=== PATIENT | male | born 1980 | race Caucasian/White ===

== ENCOUNTER 2018-04-23 10:26 | Emergency (ER) | payer BC, MEDICAID ==
[2018-04-23 10:48] VITALS: BP 141/94
--- NOTE | 2018-04-23 11:11 | EDM.PDOC ---
ED HPI GENERAL MEDICAL PROBLEM - General Chief Complaint: Upper Extremity Injury/Pain Stated Complaint: R THUMB LAC Time Seen by Provider: 04/23/18 10:56 Source of Information: Reports: Patient History Limitations: Reports: No Limitations - History of Present Illness INITIAL COMMENTS - FREE TEXT/NARRATIVE: 37-year-old male presents for evaluation and treatment the laceration to the right dorsal hand. Injury occurred prior to arrival in the ER. Patient is self- employed. He was at work. His cutting some tin for a roof when he accidentally cut himself. He has a 2 cm laceration to the right dorsal hand over the proximal phalnex. He denies any numbness or tingling. States it bled extensively after the injury but bleeding is controlled now. No obvious decreased range of motion. Some discomfort with flexion. Tetanus is up-to-date. Last tetanus was about 7 months ago. Patient is right handed. Onset: Today Location: Reports: Upper Extremity, Right Right Hand Pain Score (Numeric/FACES): 4 - Related Data Allergies Allergy/AdvReac Type Severity Reaction Status Date / Time No Known Allergies Allergy Verified 04/23/18 10:35 Home Meds: Home Meds Albuterol Sulfate [Proair Hfa] 1 puff INH ASDIRECTED PRN 04/23/18 [History] Past Medical History Respiratory History: Reports: Asthma Review of Systems - Review of Systems Review Of Systems: See Below Musculoskeletal: Reports: Hand Pain (from wound), Other (no decreased ROM) Skin: Reports: Wound (right dorsal hand) Neurological: Denies: Numbness, Tingling ED EXAM, GENERAL - Physical Exam Exam: See Below Exam Limited By: No Limitations General Appearance: Alert, WD/WN, No Apparent Distress Respiratory/Chest: No Respiratory Distress Peripheral Pulses: 2+: Radial (R) Extremities: Normal Range of Motion (patient is able to flex and extend right thumb with and without resistance. Able to adduct and abudct thumb with and withot resistance. Able to oppose thumb to all fingers. Able to make a fist. ), Normal Capillary Refill Neurological: Alert, Oriented, Normal Cognition Psychiatric: Normal Affect, Normal Mood Skin Exam: Warm, Dry, Wound/Incision (2cm laceration to the dorsal right hand over the distal metacarpal) ED TRAUMA EXTREMITY PROCEDURES - Laceration/Wound Repair Right Dorsal Digit - 1st (Thumb) Lac/Wound Length In cm: 2 Appearance: Subcutaneous, Clean Distal NVT: Neuro & Vascular Intact, No Tendon Injury Anesthetic Type: Local Local Anesthesia - Lidocaine (Xylocaine): 1% Plain Local Anesthetic Volume: 3cc Skin Prep: Chlorhexidine (Hibiciens), Saline, Sterile Drape Exploration/Debridement/Repair: Wound Explored, No Foreign Material Found Closed With: Sutures Suture Size: 4-0 # of Sutures: 6 Suture Type: Nylon, Interrupted, Simple Sterile Dressing Applied: Nurse Tetanus Status Addressed: Yes Complications: No Course - Vital Signs Last Recorded V/S: Last Vital Signs Temp 97.6 F 04/23/18 10:36 Pulse 95 04/23/18 10:36 Resp 18 04/23/18 10:36 BP 141/94 H 04/23/18 10:36 Pulse Ox 95 04/23/18 10:36 - Orders/Labs/Meds Meds: Medications Discontinued Medications Generic Name Dose Route Start Last Admin Trade Name Freq PRN Reason Stop Dose Admin Lidocaine HCl 50 ml 04/23/18 11:36 04/23/18 11:41 Xylocaine 1% INJECT 04/23/18 11:37 50 ml ONETIME ONE Administration - Re-Assessments/Exams Free Text/Narrative Re-Assessment/Exam: 04/23/18 12:01 6 sutures placed to the right dorsal hand over the proximal phalanx. Patient tolerated well. Range of motion tested again after sutures placed and patient is able to flex and extend right thumb both with and without resistance. Discharge instructions as documented. Departure - Departure Time of Disposition: 12:02 Disposition: Home, Self-Care 01 Condition: Fair Clinical Impression: Laceration - Discharge Information *PRESCRIPTION DRUG MONITORING PROGRAM REVIEWED*: No *COPY OF PRESCRIPTION DRUG MONITORING REPORT IN PATIENT WENDY: No Instructions: Laceration Care, Adult Referrals: Rosemarie Coy PA-C [Primary Care Provider] - Forms: ED Department Discharge Additional Instructions: Monitor the wound for signs of infection such as increased swelling, pus or redness. Present to the clinic or the ER should these develop. Wash the wound with gentle soap and water twice a day. Apply antibacterial ointment such as Neosporin or bacitracin to the wound twice a day. Keep the wound covered when you are in situations where there may become contaminated such as work. Otherwise open to air is good. Have the sutures removed in 10 days. your primary care provider can do this. may also return to the ER or present to the [facility]. They are open Sunday through Sunday 8 AM to 5 PM and will remove the sutures for free. Call [phone] to schedule with a provider there. [id number] Tylenol or Motrin as needed for pain relief. Please return to the ER if your symptoms change or worsen..
[2018-04-23] MEDS ORDERED: Lidocaine 1% 50 ML MDV INJECT ONE (11:36)
== END 2018-04-23 12:23 | disposition home or self-care (01) ==
LOC: JD.ED 10:26
DX: S61.411A Laceration without foreign body of right hand, initial encounter (principal); W26.8XXA Contact with other sharp object(s), not elsewhere classified, initial encounter
CPT/HCPCS: 12001; 99283-25

== ENCOUNTER 2023-04-04 20:12 | Emergency (ER) | payer BC ==
[2023-04-04] MEDS ORDERED: HYDROmorphone 0.5 MG/0.5 ML Syringe IM ONE (21:09)
[2023-04-05 02:15] VITALS: BP 143/90; PULSE 77
== END 2023-04-04 22:18 | disposition home or self-care (01) ==
LOC: JD.ED 20:12
DX: S46.211A Strain of muscle, fascia and tendon of other parts of biceps, right arm, initial encounter (principal); J45.909 Unspecified asthma, uncomplicated; X50.9XXA Other and unspecified overexertion or strenuous movements or postures, initial encounter
CPT/HCPCS: 73090-26-RT; 73090-RT; 99283

== ENCOUNTER 2023-04-16 06:07 | Day surgery (SDC) | payer BC ==
[~2023-04-16 06:07] MED LIST: Lactated Ringers 1,000 ML IV SCH; Sodium Chloride 0.9% 10 ML Syringe FLUSH PRN
[2023-04-16] MEDS ORDERED: Midazolam 1 MG/ML 2 ML SDV ONE (06:29)
[2023-04-16] MEDS ORDERED: Lidocaine 1% 6 ML ONE (06:29)
[2023-04-16] MEDS ORDERED: fentaNYL 100 MCG/2 ML SDV ONE ×2 (06:29→08:29)
[2023-04-16] MEDS ORDERED: Dexmedetomidine 200 MCG/2 ML SDV ONE (06:30)
[2023-04-16] MEDS ORDERED: Propofol 200 MG/20 ML SDV ONE ×2 (06:30→08:53)
[2023-04-16] MEDS ORDERED: Ropivacaine 0.5% 5 MG/ML 30 ML SDV ONE (06:36)
[2023-04-16] MEDS ORDERED: Dexamethasone 4 MG/ML 5 ML MDV ONE (08:30)
[2023-04-16] MEDS ORDERED: EPINEPHrine 1 MG/ML SDV ONE (08:30)
[2023-04-16] MEDS ORDERED: Metoclopramide 10 MG/2 ML SDV ONE (08:43)
[2023-04-16] MEDS ORDERED: Ondansetron 4 MG/2 ML SDV ONE (08:44)
[2023-04-16] MEDS ORDERED: ceFAZolin 2 GM Vial ONE (08:47)
[2023-04-16] MEDS ORDERED: Lactated Ringers 1,000 ML ONE (09:04)
[2023-04-16] MEDS ORDERED: HYDROmorphone 0.5 MG/0.5 ML Syringe IVPUSH PRN (09:24)
[2023-04-16] MEDS ORDERED: fentaNYL 100 MCG/2 ML SDV IVPUSH PRN (09:24)
[2023-04-16] MEDS ORDERED: Acetaminophen/HYDROcodone 325-5 MG Tab PO SCH (10:43)
[2023-04-16 13:20] VITALS: BP 139/90; PULSE 80
== END 2023-04-16 12:17 | disposition home or self-care (01) ==
LOC: JD.SDS 06:07
PROVIDERS: ATTEND Orthopaedic Surgery
DX: S46.211A Strain of muscle, fascia and tendon of other parts of biceps, right arm, initial encounter (principal); J45.30 Mild persistent asthma, uncomplicated; J30.2 Other seasonal allergic rhinitis; G47.30 Sleep apnea, unspecified; Z79.899 Other long term (current) drug therapy; X58.XXXA Exposure to other specified factors, initial encounter
CPT/HCPCS: 23430; 64447; 76000; A9270; J0171; J0690; J1100; J2250; J2405; J2704; J2765; J2795; J3010; J7120; 01710; 64417; C1776; J3490

== ENCOUNTER 2024-05-16 09:48 | Emergency (ER) | payer OTHER, BC ==
[2024-05-16] MEDS ORDERED: Lidocaine 1% 10 ML MDV INJECT ONE (10:02)
[2024-05-16 20:04] VITALS: BP 165/102; PULSE 106
== END 2024-05-16 11:00 | disposition home or self-care (01) ==
LOC: JD.ED 09:48
DX: S61.412A Laceration without foreign body of left hand, initial encounter (principal); J45.909 Unspecified asthma, uncomplicated; Z79.51 Long term (current) use of inhaled steroids; W26.0XXA Contact with knife, initial encounter; Y99.0 Civilian activity done for income or pay
CPT/HCPCS: 12001; 99282